=== PATIENT | male | born 1960 | race Caucasian/White ===

== ENCOUNTER 2022-05-27 21:27 | Emergency (ER) | payer OTHER, SELFPAY ==
--- NOTE | 2022-05-27 21:43 | ED.CPR ---
HPI - CPR General Stated Complaint: cardiac arrest Time Seen by Provider: 05/27/22 21:42 Source: EMS Mode of arrival: EMS Limitations: other (Cardiac arrest) History of Present Illness HPI narrative: 61-year-old male brought to the emergency department by EMS in cardiac arrest. Information was obtained from the paramedics. The patient's last known well time was approximately 1 hour prior to EMS being called. Patient was apparently found unresponsive. When the paramedics arrived on the scene the patient was unresponsive and had no pulse and not breathing spontaneously. The initial rhythm according to the paramedics was PEA. When the development scientist intubated the patient, she states that there was a large amount of bloody emesis in the back of the patient's pharynx which was suctioned out and the patient was then intubated without difficulty. An intraosseous line was also established. The patient was given 3 rounds of epinephrine IV prior to coming to emergency department. Toll Line Repairer reports that the patient was initially asystolic developed brief episode of PEA and then became asystolic again. First responders were the police followed by EMS and then an ALS ambulance. The paramedics estimate that the total resuscitation time the field was approximately 25 minutes prior to coming to the emergency department. The EMS personnel state that they believe they brought this person to our emergency department about 1 month prior. The patient is currently living at the [place] [address] at 15:15 [facility] in [place]. The paramedics did bring in a individual intake [employer] worker form which states that the patient's date of is 1960 and is name is Shaka Jorgensen # [id number] [id number]. The note lists the following medical issues: Diabetes, emphysema, psychiatric meds. We were unable to pull up any records on this patient in our system at this time. complaint: found unresponsive Onset (ago): unknown Timing confirmed by: other (Toll Line Repairer) Place: other ([place] [address]-apparently the patient is living at the [place] [address]) Bystander CPR performed: No AED applied by bystander/pencil inspector: No Initial findings in the field: unresponsive ROSC in the field: No Associated injuries: No Treatments prior to arrival: intubation, chest compressions and epinephrine mgs # (3) Related Data Allergies Allergy/AdvReac Type Severity Reaction Status Date / Time No Known Allergies Allergy Unverified 07/22/20 16:45 [No Known Allergies*] Review of Systems Review of Systems: Yes Other (Cardiac arrest) [facility] Past Medical History [facility] Narrative: Obtained from [employer] worker intake form:Diabetes, emphysema, psychiatric meds Source: other ([employer] worker intake form) Social History Social History Advance Directives: No Physical Exam Const: Other: Obese, male patient, intubated, unresponsive, no spontaneous movement, no spontaneous respiratory effort HEENT: Other: Patient's head is normal cephalic and atraumatic, his pupils are fixed and dilated Eyes: Other: Pupils are fixed and dilated Neck: Other: No evidence of bruising or trauma Chest: Other: Chest appears normal, no bruising, no evidence of trauma Resp: Other: No spontaneous respiratory effort, patient has symmetric breath sounds bilaterall with bag ventilation assist, he is intubated with an endotracheal tube, there is blood noted in the endotracheal 2 Cardio: Other: No heart sounds on auscultation GI: Other: Abdomen is obese, no ecchymosis noted the abdominal wall Skin: Other: No significant evidence for ecchymosis or trauma Neuro: Other: No spontaneous movement, no spontaneous respirations, pupils are fixed and dilated Extrem: Other: Extremities appear to be normal in appearance with no obvious trauma Course Course Course Narrative: 61-year-old male patient with a history of diabetes, emphysema, psychiatric meds as obtained from [employer] worker intake form whose last with known well time was 01:00 hour prior to being found unresponsive in his hotel room. Patient was given CPR by 1st responders (police) followed by EMS and then the paramedics. When the paramedics arrived on the scene the patient was found to be asystolic. He was intubated, and intraosseous line was obtained and he was given 3 rounds of epinephrine. Paramedics states that the patient had a brief episode of PA present was asystolic. The development scientist estimates that there total time in the field was 25 minutes. On arrival to the emergency department the patient was unresponsive, was intubated, his initial rhythm was asystole he had no pulses. He received continuous CPR, he was treated with epinephrine x4 and sodium bicarb x1. His point of care glucose was 133. Throughout the entire resuscitation the patient remained unresponsive, he had no pulse and he was asystolic. At that time I estimated that he had at least 35 minutes of unsuccessful resuscitation then unknown down time therefore CPR was terminated and the patient was pronounced at 21:38 hours. We have checked our system with the patient's name, his date of and social security number and we do not have any previous records on him. We have no demographic information and no next of kin information. I will discuss the patient's presentation with the medical lab tech instructor's office. [id number]: I did discuss the patient's presentation with the medical lab tech instructor, she was able to get some information on the patient and states that the patient was on Suboxone. Because of this, there is a possibility the patient may have overdosed on opiates and the patient will be, a medical lab tech instructor case. The patient was accepted by Fidelia Sequeira in the medical lab tech instructor's office and the case number is [id number]. MDM - Cardiac Arrest/CPR Lab Data Labs: Lab Results 05/27/22 Range/Units 21:59 COVID-19 ([facility]) Negative (Negative) COVID-19 Clin Com See Note Discharge Plan Discharge Clinical Impression: Cardiac asystole, Cardiac arrest Patient Disposition:
[2022-05-27 22:22] LABS: COVID-19 Test Negative (Negative); IDNOW Serial# 16C4AD1C
--- NOTE | 2022-05-27 22:22 | PC.NURSE ---
[facility] is accepting patient. will call back in a few hours. case # [id number]
--- NOTE | 2022-05-27 22:34 | PC.NURSE ---
This [place] called the Clinical Laboratory Service Teacher at 2200 awaiting a call back. Md and RN aware.At 2223 received a call back and they stated they want to try to get more information and will call back,Md and Rn aware.
--- NOTE | 2022-05-27 23:02 | PC.NURSE ---
At 2253 Kenia from the [employer] called spoke with accepted patient Case Number is [id number]. Rn aware
--- NOTE | 2022-05-27 23:20 | PC.NURSE ---
ET tube was deflated and removed by PCT during postmortem care. PCT was unaware that patient has been accepted by [facility]. IO and IV remain in place. Pt prepared for transfer [place] the [facility].
[2022-05-29 08:26] LABS: Glucose, Whole Blood 133 mg/dL (60-115)
[2022-05-29 08:27] LABS: Glucose, Whole Blood 284 mg/dL (60-115)
[2022-05-29 08:29] LABS: Glucose, Whole Blood 261 mg/dL (60-115)
[2022-05-29 08:30] LABS: Glucose, Whole Blood 147 mg/dL (60-115)
[2022-05-29 08:31] LABS: Glucose, Whole Blood 305 mg/dL (60-115)
== END 2022-05-28 01:44 | disposition expired ==
PROVIDERS: Emergency Provider Emergency Medicine Emergency Medical Services; PCP Family Medicine
DX: I46.9 Cardiac arrest, cause unspecified (principal); E11.9 Type 2 diabetes mellitus without complications; F11.20 Opioid dependence, uncomplicated; Z20.822 Contact with and (suspected) exposure to COVID-19
CPT/HCPCS: 82947; 87635; 99282; 99284; J0171